=== PATIENT | female | born 1980 | race Caucasian/White ===

== ENCOUNTER 2020-09-22 12:49 | Emergency (ER) | payer BC ==
--- OUTSIDE RECORDS SUMMARY | 2020-09-22 12:52 | XMS REPORT | Continuity of Care Document ---
:1980 Author Organization [facility] t Address [address] [place] [address] Care Team Providers Name Role Phone Percy PINA Joshua Attending Clinician Doctor Unassigned, Name Attending Clinician Unavailable Lab, Fam Pob I Attending Clinician Unavailable Problems This patient has no known problems. Allergies, Adverse Reactions, Alerts This patient has no known allergies or adverse reactions. Medications This patient has no known medications. Procedures This patient has no known procedures. Encounters Start End Encounter Admission Attending Care Care Encounter Source Date/Time Date/Time Type Type Clinicians Facility Department ID 2020-05-12 2020-05-12 Patient Percy ILKATHRYN [id number] 00:00:00 00:00:00 Outreach [facility] [id number] [facility] [id number] PAVILLION [id number] 2020-04-15 2020-04-15 Orders Doctor BRADLEY [id number] 00:00:00 00:00:00 [place] [id number] [place] [facility] [id number] 2020-01-30 2020-01-30 Laboratory Lab, [facility] [id number] 10:49:09 11:09:09 Only Fam [facility] [id number] [place] [id number] Professio [phone] nal [address] 2020-01-30 2020-01-30 Letter Doctor BRADLEY [id number] 00:00:00 00:00:00 (Out) Unassigned, [place] [id number] [place] [facility] [phone] [id number] Results This patient has no known results.
[2020-09-22] MEDS ORDERED: IBUPROFEN 200 MG TAB PO ONE ×2 (15:11→16:34)
[2020-09-22] MEDS ORDERED: TETANUS & DIPHTHERIA TOX,ADULT 0.5 ML VIAL ONE ×2 (15:12→16:35)
--- NOTE | 2020-09-22 15:56 | EDPHYS ---
[facility] Name: Rob Quintana Age: 40 yrs Sex: Female : 1980 Arrival Date: 09/22/2020 Time: 12:52 Bed 30 Private MD: ED Physician Herson Huerta HPI: 09/22 14:49 This 40 yrs old Female presents to ER via Ambulatory with complaints of pm1 Finger problem. 14:49 The patient or guardian reports a puncture wound, with a hard noodle. The complaints pm1 affect the under right index fingernail. Context: The problem was sustained at a Sister's house, resulted from patient was washing dishes. Onset: The symptoms/episode began/occurred yesterday. Modifying factors: The symptoms are alleviated by nothing, the symptoms are aggravated by nothing. Associated signs and symptoms: Pertinent negatives: cyanosis distally, decreased sensation distally, fever, numbness distally, tingling distally. Severity of symptoms: in the emergency department the symptoms are unchanged. The patient has not experienced similar symptoms in the past. The patient has not recently seen a physician. Patient was washing dishes at her sister's house yesterday and she reports a hard noodle poked her right index finger underneath her nail. She reports foreign body sensation and has been attempting to pick underneath her nail with a needle. 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 - Social history:: Smoking status: Patient denies any tobacco usage or history of. ROS: 14:49 Constitutional: Negative for fever, chills, and weight loss, Cardiovascular: Negative pm1 for chest pain, palpitations, and edema, Respiratory: Negative for shortness of breath, cough, wheezing, and pleuritic chest pain. 14:49 Skin: Negative for injury, rash, and discoloration, Neuro: Negative for headache, weakness, numbness, tingling, and seizure. 14:49 MS/extremity: Positive for pain, of the Right index finger, Negative for decreased range of motion, deformity, paresthesias, swelling, tingling. 14:49 All other systems are negative. Exam: 14:49 Constitutional: This is a well developed, well nourished patient who is awake, alert, pm1 and in no acute distress. Head/Face: Normocephalic, atraumatic. 14:49 Cardiovascular: Rate: normal, Rhythm: regular, Pulses: no pulse deficits are appreciated. 14:49 Respiratory: Exam negative for acute changes, respiratory distress, shortness of breath. 14:49 Musculoskeletal/extremity: Extremities: grossly normal except: noted in the dorsal aspect of distal phalanx of right index finger and right index fingernail: There is no evidence of decreased ROM, deformity. 14:49 Skin: Appearance: normal except for affected area, abscess, not appreciated, cellulitis, is not appreciated, small subungual hematoma present to right index finger. No visible foreign body present. Vital Signs: 14:46 BP 121 / 84; Pulse 79; Resp 16; Temp 98.0; Pulse Ox 99% on R/A; Weight 104.33 kg; iw Height 5 ft. 6 in. (167.64 cm); 14:46 Body Mass Index 37.12 (104.33 kg, 167.64 cm) iw Procedures: 15:53 Performed Trephination of right index finger with bovie pen. Patient tolerated well. pm1 Patient reports marked relief of pain . MDM: 15:07 Data reviewed: vital signs. Data interpreted: Pulse oximetry: on room air is 99 %. pm1 Interpretation: normal. 15:20 Patient medically screened. pm1 15:55 Counseling: I had a detailed discussion with the patient and/or guardian regarding: the pm1 historical points, exam findings, and any diagnostic results supporting the discharge/admit diagnosis, radiology results, the need for outpatient follow up, a hand specialist, to return to the emergency department if symptoms worsen or persist or if there are any questions or concerns that arise at home. 15:55 Special discussion: I discussed in detail with the patient the higher chance of wound pm1 infection based on his presenting history. No foreign body visualized on examination or x-ray. Explained to patient that all puncture wounds care a risk for infection. 09/22 14:48 Order name: Hand Right 3 View XRAY pm1 Administered Medications: 16:19 Drug: Tetanus-Diphtheria Toxoid Adult 0.5 ml {Digital Research Analyst: [employer]. Exp: iw 06/05/2021. Lot #: [id number]. } Route: IM; Site: right deltoid; 16:30 Follow up: Response: No adverse reaction iw 16:19 Drug: Ibuprofen 600 mg Route: PO; iw 16:40 Follow up: Response: No adverse reaction iw Disposition: 16:50 Co-signature as Attending Physician, Herson Huerta MD I agree with the assessment and kdr plan of care. Disposition Summary: 09/22/20 15:55 Discharge Ordered Location: Home pm1 Problem: new pm1 Symptoms: have improved pm1 Condition: Stable pm1 Diagnosis - Puncture wound with foreign body of right hand pm1 Followup: pm1 - With: Emergency Department - When: As needed - Reason: Worsening of condition Followup: pm1 - With: - When: 2 - 3 days - Reason: Recheck today's complaints, Continuance of care, Re-evaluation by your physician Discharge Instructions: - Discharge Summary Sheet pm1 - Puncture Wound pm1 Forms: - Medication Reconciliation Form pm1 - Work release form pm1 - Thank You Letter pm1 - Antibiotic Education pm1 - Prescription Opioid Use pm1 Prescriptions: - Cephalexin 500 mg Oral Capsule - take 1 capsule by ORAL route every 6 hours for 10 days; 40 capsule; Refills: 0, pm1 Product Selection Permitted - Bactrim DS 800-160 mg Oral Tablet - take 1 tablet by ORAL route every 12 hours for 10 days; 20 tablet; Refills: 0, pm1 Product Selection Permitted Signatures: Dispatcher [employer] EDHerson Barboza MD MD kdr Williams, Irene, CAMRON RN iw Jozef Vazquez NP CONCRETE POURING SUPERVISOR pm1
--- NOTE | 2020-09-22 15:56 | ER ---
Nurse's Notes [facility] Name: Rob Quintana Age: 40 yrs Sex: Female : 1980 Arrival Date: 09/22/2020 Time: 12:52 Bed 30 Private MD: Diagnosis: Puncture wound with foreign body of right hand Presentation: 09/22 14:44 Chief complaint: Patient states: got a hard noodle stuck under her right index iw fingernail yesterday when washing dishes. Coronavirus screen: At this time, the client does not indicate any symptoms associated with coronavirus-19. Ebola Screen: Patient negative for fever greater than or equal to 101.5 degrees Fahrenheit, and additional compatible Ebola Virus Disease symptoms Patient denies exposure to infectious person. Patient denies travel to an Ebola-affected area in the 21 days before illness onset. No symptoms or risks identified at this time. Initial Sepsis Screen: Does the patient meet any 2 criteria? No. Patient's initial sepsis screen is negative. Does the patient have a suspected source of infection? No. Patient's initial sepsis screen is negative. Risk Assessment: Do you want to hurt yourself or someone else? Patient reports no desire to harm self or others. Onset of symptoms was September 21, 2020. 14:44 Method Of Arrival: Ambulatory iw 14:44 Acuity: SEAN 4 iw Triage Assessment: 14:50 General: Appears in no apparent distress. comfortable, Behavior is calm, cooperative. 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 - Social history:: Smoking status: Patient denies any tobacco usage or history of. Screenin:00 Abuse screen: Denies threats or abuse. Denies injuries from another. Nutritional iw screening: No deficits noted. Tuberculosis screening: No symptoms or risk factors identified. Fall Risk None identified. Assessment: 14:50 General: Appears in no apparent distress. Behavior is calm, cooperative. Pain: iw Complains of pain in right index fingernail. Neuro: Level of Consciousness is awake, alert, obeys commands, Oriented to person, place, time, situation, Moves all extremities. Full function. Derm: Skin is healthy with good turgor. Vital Signs: 14:46 BP 121 / 84; Pulse 79; Resp 16; Temp 98.0; Pulse Ox 99% on R/A; Weight 104.33 kg; iw Height 5 ft. 6 in. (167.64 cm); 14:46 Body Mass Index 37.12 (104.33 kg, 167.64 cm) iw ED Course: 12:52 Patient arrived in ED. mr 14:44 Christie Huerta, RN is Primary Nurse. iw 14:44 Triage completed. iw 14:45 Arm band placed on. iw 14:50 Patient has correct armband on for positive identification. iw 15:19 Jozef Vazquez NP is PHCP. pm1 15:19 Herson Huerta MD is Attending Physician. pm1 15:21 Hand Right 3 View XRAY In Process Unspecified. EDMS 15:55 Handy Gastelum MD is Referral Physician. pm1 16:20 Patient did not have IV access during this emergency room visit. iw 17:00 Assist provider with nail repair of subungual hematoma using a drill. iw Administered Medications: 16:19 Drug: Tetanus-Diphtheria Toxoid Adult 0.5 ml {[employer] Founder: [employer]. Exp: iw 06/05/2021. Lot #: [id number]. } Route: IM; Site: right deltoid; 16:30 Follow up: Response: No adverse reaction iw 16:19 Drug: Ibuprofen 600 mg Route: PO; iw 16:40 Follow up: Response: No adverse reaction iw Outcome: 15:55 Discharge ordered by . pm1 16:20 Discharged to home ambulatory. iw 16:20 Condition: good 16:20 Discharge instructions given to patient, Instructed on discharge instructions, follow up and referral plans. medication usage, safety practices, Demonstrated understanding of instructions, follow-up care, medications, Prescriptions given X 2. 16:20 Patient left the ED. iw Signatures: Dispatcher [employer] EDMN Javan Ani orr Christie Huerta RN RN iw Jozef Vazquez NP CURATORIAL SPECIALIST pm1
--- NOTE | 2020-09-22 16:23 | RAD REPORT ---
EXAM DESCRIPTION: RAD - Hand Right 3 View - 09/22/2020 3:23 pm CLINICAL HISTORY: puncuture wound right index finger Pain and swelling COMPARISON: No comparisons FINDINGS: Mild soft tissue swelling is seen affecting the distal second digit. No fracture or radiop aque foreign body is seen.
[2020-09-22 16:25] VITALS: BP 121/84; TEMP 98; O2SAT 99
[2020-09-22] MEDS ORDERED: IBUPROFEN 400 MG TAB ONE (16:34)
== END 2020-09-22 16:20 | disposition home or self-care (01) ==
LOC: ER 12:49
PROC: 0H9QXZZ Drainage of Finger Nail, External Approach (ICD-10-PCS; principal; 2020-09-22)
DX: S61.240A Puncture wound with foreign body of right index finger without damage to nail, initial encounter (principal); Z23 Encounter for immunization
CPT/HCPCS: 90714